=== PATIENT | female | born 1985 | race Caucasian/White ===

== ENCOUNTER 2017-10-16 15:47 | Outpatient (CLI) | payer OTHER | END 2017-10-16 15:48 | disposition home or self-care (01) | LOC: BICRAD 15:47 | PROVIDERS: ATTEND Family Medicine | DX: S90.32XA Contusion of left foot, initial encounter (principal) ==

== ENCOUNTER 2017-11-23 08:34 | Outpatient (CLI) | payer OTHER ==
--- NOTE | 2017-11-23 10:26 | MRI ---
MRI OF LEFT FOOT PERFORMED WITHOUT CONTRAST ENHANCEMENT: HISTORY: Contusion of left foot. The patient was stepped on by a foal with persistent pain. No improvement s lilly the incident. The injury was 6 weeks ago. COMPARISON: Left toe films performed 10/16/17. FINDINGS: The area in question was marked. This is on the dorsum of the foot near the base of the 2nd and 3rd metatarsals. This exam is tailored more for evaluation of this area. The Achilles tendon appears intact. Plantar fascia region is unremarkable. Limited visualization of the ankle joint shows no abnormalities. There is more fluid seen within the flexor hallucis longus tendon sheath than would be expected for the amount of ankle joint fluid, and this would suggest teno synovitis. In addition, there are edema changes involving the medial head of the flexor hallucis gordon vis muscle of the great toe suggesting muscle strain. The marrow signal change within the metatarsals is normal. No signs that would suggest any type of f racture. I do not see any definite abnormalities related to the toes. IMPRESSION: 1. No evidence of fracture. 2. Tenosynovitis changes of the flexor hallucis longus tendon. In addition, there is evidence for a muscle strain in the medial head of the flexor hallucis brevis tendon near its distal attachment. T his would suggest muscle strain. POS: [facility]
== END 2017-11-23 08:35 | disposition home or self-care (01) ==
LOC: SCSMRI 08:34
PROVIDERS: ATTEND Family Medicine
DX: S90.32XD Contusion of left foot, subsequent encounter (principal)

== ENCOUNTER 2018-10-02 14:02 | Outpatient (CLI) | payer BC, OTHER ==
[~2018-10-02 14:02] MED LIST: Gadobenate Dimeglumine 529 MG/1 ML (20ML VIAL) ONE
--- NOTE | 2018-10-02 15:21 | MRI ---
MRI BRAIN WITH AND WITHOUT CONTRAST: INDICATIONS: Neck pain. Numbness and tingling to the upper extremities. TECHNIQUE: Multiplanar, multisequential imaging of the brain obtained. Post contrast images were obtained with the administration of 11 mL of MultiHance IV. FINDINGS: The ventricles have normal size and position. No evidence of restricted diffusion. No mass or edema . No evidence of white matter abnormality. No abnormal enhancement. There is focal mucosal edema, suggesting mucus retention cyst in the floor of both maxillary sinuses, measuring approximately 2 cm in the left maxillary sinus and approximately 1.5 cm in the floor of th e right maxillary sinus. IMPRESSION: 1. Unremarkable MRI brain. 2. Mucus retention cysts seen in the floor of both maxillary sinuses. POS: [facility]
== END 2018-10-02 14:03 | disposition home or self-care (01) ==
LOC: BICMRI 14:02
PROVIDERS: ATTEND Psychiatry & Neurology Neurology
DX: M54.2 Cervicalgia (principal); J34.1 Cyst and mucocele of nose and nasal sinus
CPT/HCPCS: 70553; A9577

== ENCOUNTER 2019-05-07 08:07 | Outpatient (CLI) | payer BC, OTHER ==
--- NOTE | 2019-05-07 09:39 | ULT ---
ULTRASOUND ABDOMEN: Date: 05/07/19 HISTORY: Elevated LFTs. FINDINGS: The liver demonstrates mildly increased echogenicity consistent with fatty infiltration. No focal mas s or intrahepatic ductal dilatation is seen. The spleen, gallbladder, kidneys, pancreas, and visualiz ed portions of the aorta and IVC appear normal. No free fluid is seen. The common duct measures 3 mm in diameter. IMPRESSION: Mild fatty infiltration of the liver. POS: [facility]
== END 2019-05-07 08:08 | disposition home or self-care (01) ==
LOC: BICULT 08:07
PROVIDERS: ATTEND Family Medicine
DX: R74.8 Abnormal levels of other serum enzymes (principal); K76.0 Fatty (change of) liver, not elsewhere classified
CPT/HCPCS: 93975

== ENCOUNTER 2020-04-08 15:37 | Outpatient (CLI) | payer OTHER ==
--- NOTE | 2020-04-08 16:26 | RAD ---
Cervical spine 7 views, flexion and extension, oblique HISTORY: Injury. FINDINGS: Vertebral body heights and alignment are maintained. Cervicothoracic junction is intact. Neural foramina are free of osseous encroachment on the oblique views. No abnormal translational motion upon flexion or extension. No acute fracture or dislocation. No aggr essive osseous erosions. IMPRESSION : No abnormalities are demonstrated.
== END 2020-04-08 15:38 | disposition home or self-care (01) ==
LOC: BICRAD 15:37
PROVIDERS: ATTEND Family Medicine
DX: M54.2 Cervicalgia (principal)
CPT/HCPCS: 72050